=== PATIENT | female | born 1960 | race Caucasian/White ===

== ENCOUNTER 2019-06-16 08:52 | Emergency (ER) | payer BC ==
--- OUTSIDE RECORDS SUMMARY | 2019-06-16 08:58 | XMS REPORT | Summary of Care ---
:1960 Author Organization [facility] Address [address] [facility] [place] [address] Care Team Providers Name Role Phone Park Rosa Primary Care Provider Reason for Visit Reason Comments Sick rash-shingles sx - on and off since Dec Encounter Details Date Type Department Care Team Description 05/15/2019 Office Visit [facility] Park Rosa MD Cellulitis, unspecified cellulitis site (Primary Dx); Medicine [address] [facility] Asthma, unspecified asthma severity, unspecified whether complicated, unspecified whether persistent [address] [place] [address] [place] [address] [phone] Allergies Active Allergy Reactions Severity Noted Date Comments Ambien TRANSPORT MANAGER Reaction 02/21/2016 Did not work Trazodone TRANSPORT MANAGER Reaction 02/21/2016 Dizzy during the day Bupropion Hives 01/25/2010 documented as of this encounter (statuses as of 05/15/2019) Medications Medication Sig Dispensed Refills Start End Date Status Date albuterol HFA Take 2 Puffs 0 Active (PROAIR HFA) 108 (90 by inhalation Base) MCG/ACT EVERY SIX Inhalation Aero Soln HOURS NEEDED. fluticasone-salmeter Take 2 INHL by 1 Inhaler 3 Active ol (ADVAIR HFA) inhalation 7 115-21 MCG/ACT TWICE DAILY. Inhalation Aerosol TURMERIC PO Take by mouth 0 Active TWICE DAILY. Probiotic Product Take 2 Tabs by 0 Active (PROBIOTIC-10 PO) mouth TWICE DAILY. ascorbic acid 500 MG Take 500 mg by 0 Active Oral Tab mouth TWICE DAILY. Cholecalciferol Take 1 Cap by 0 Active (VITAMIN D3 PO) mouth DAILY. Glutamine 500 MG Take 5 Caps by 0 Active Oral Cap mouth DAILY. Ginkgo Biloba Take 2 Caps by 0 Active Extract 60 MG Oral mouth TWICE Cap DAILY. Tow-3 Fatty Acids Take 1 Cap by 0 Active (FISH OIL) 1000 MG mouth DAILY. Oral Cap Polaprezinc Take by 0 Active (PEPZINGI PO) mouth. ESTRADIOL VAGINAL Place 0.5 g 1 Tube 5 Active (ESTRACE VAGINAL) into the 9 0.1 MG/GM Vaginal vagina EVERY CreamIndications: OTHER DAY. S/P LORE-BSO fluoxetine (PROZAC) Take 1 Cap by 90 Cap 3 Active 10 MG Oral Cap mouth DAILY. 9 ALPRAZolam (XANAX) Take 1 Tab by 60 Tab 0 Active 0.25 MG Oral mouth THREE 9 TabIndications: TIMES DAILY Anxiety NEEDED (anxieity). Max Daily Amount: 0.75 mg. cephalexin (KEFLEX) Take 1 Cap by 21 Cap 0 Active 500 MG Oral mouth THREE 0 CapIndications: TIMES DAILY. Cellulitis, unspecified cellulitis site Triamcinolone 1 Appl by 15 g 0 Active Acetonide 0.5 % Apply 0 Apply externally externally CreamIndications: route TWICE Cellulitis, DAILY. Apply unspecified twice/ day cellulitis site ibuprofen (ADVIL) Take 600 mg by 0 05/15/19 Discontinued 200 MG Oral Tab mouth EVERY 20 (Patient stopped SIX HOURS the medication) NEEDED for Pain. dicyclomine (BENTYL) Take 1 Cap by 60 Cap 0 05/15/19 Discontinued 10 MG Oral Cap mouth TWO 9 20 (Patient stopped TIMES DAILY the medication) NEEDED (cramps). 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 Osteopenia 02/18/2015 Overview: 10 % loss of bone - in one yr Malignant neoplasm of left female breast 01/08/2015 Overview: Diagnosis age 42 - Fall 2002 - Chemo and mastectomy - reocurrence 2005 - Radiation / ovarian removal - Instant menopause- Dr Wilson- At [facility] documented as of this encounter (statuses as of 05/15/2019) Immunizations Name Administration Dates Next Due Influenza (IM) Preservative Free 03/18/2018, 01/09/2017, 01/09/2015 Influenza (IM) W/Pres 02/22/2016 documented as of this encounter Social History Tobacco Use Types Packs/Day Years Used Date Former Smoker Smokeless Tobacco: Never Used Alcohol Use Drinks/Week oz/Week Comments Yes 0 Standard drinks or equivalent 0.0 2 to 3 times a week Sex Assigned at Date Recorded Not on file Job Start Date Occupation Industry Not on file Not on file Not on file Travel History Travel Start Travel End No recent travel history available. documented as of this encounter Last Filed Vital Signs Vital Sign Reading Time Taken Comments Blood Pressure 90/62 05/15/2019 4:19 PM EST Pulse 62 05/15/2019 4:19 PM EST Temperature - - Respiratory Rate - - Oxygen Saturation 97% 05/15/2019 4:19 PM EST Inhaled Oxygen Concentration - - Weight 53 kg (116 lb 12.8 oz) 05/15/2019 4:19 PM EST Height 162.6 cm (5' 4") 05/15/2019 4:19 PM EST Body Mass Index 20.05 05/15/2019 4:19 PM EST documented in this encounter Progress Park Quiros MD - 05/15/2019 4:00 PM EST NAME:Rocío Taylor 1960: 1960 ENC Date: 05/15/2019 CC: Chief Complaint Patient presents with Sick rash-shingles sx - on and off since Dec Rocío Taylor is a 59-y.o. female * , Shingles - ? Fall rash - Other rash - Bites on the inner surface of the left arm- Right 5th finger - Pad- Is swollen in the last 1-2 days- Asthma Current Outpatient Medications Medication Sig albuterol HFA (PROAIR HFA) 108 (90 Base) MCG/ACT Inhalation Aero Soln Take 2 Puffs by inhalation EVERY SIX HOURS NEEDED. ALPRAZolam (XANAX) 0.25 MG Oral Tab Take 1 Tab by mouth THREE TIMES DAILY NEEDED (anxieity). Max Daily Amount: 0.75 mg. ascorbic acid 500 MG Oral Tab Take 500 mg by mouth TWICE DAILY. cephalexin (KEFLEX) 500 MG Oral Cap Take 1 Cap by mouth THREE TIMES DAILY. Cholecalciferol (VITAMIN D3 PO) Take 1 Cap by mouth DAILY. ESTRADIOL VAGINAL (ESTRACE VAGINAL) 0.1 MG/GM Vaginal Cream Place 0.5 g into the vagina EVERYOTHER DAY. fluoxetine (PROZAC) 10 MG Oral Cap Take 1 Cap by mouth DAILY. fluticasone-salmeterol (ADVAIR HFA) 115-21 MCG/ACT Inhalation Aerosol Take 2 INHL by inhalation TWICE DAILY. Ginkgo Biloba Extract 60 MG Oral Cap Take 2 Caps by mouth TWICE DAILY. Glutamine 500 MG Oral Cap Take 5 Caps by mouth DAILY. Tow-3 Fatty Acids (FISH OIL) 1000 MG Oral Cap Take 1 Cap by mouth DAILY. Polaprezinc (PEPZINGI PO) Take by mouth. Probiotic Product (PROBIOTIC-10 PO) Take 2 Tabs by mouth TWICE DAILY. Triamcinolone Acetonide 0.5 % Apply externally Cream 1 Appl by Apply externally route TWICE DAILY. Apply twice/ day TURMERIC PO Take by mouth TWICE DAILY. No current facility-administered medications for this visit. 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 No bruising/ bleeding. No neurological complaints . No insomnia.+ . Social History Tobacco Use Smoking status: Former Smoker Smokeless tobacco: Never Used Substance Use Topics Alcohol use: Yes Alcohol/week: 0.0 standard drinks Comment: 2 to 3 times a week Drug use: No OBJECTIVE: BP 90/62 | Pulse 62 | Ht 5' 4" (1.626 m) | Wt 116 lb 12.8 oz (53 kg) | SpO2 97% | BMI 20.05 kg/m . Two large uticarial like papules with excorieated centers - Inside of the left arm Small pink papule on the neck - A/P ICD-9-CM ICD-10-CM 1. Cellulitis, unspecified cellulitis site 682.9 L03.90 cephalexin (KEFLEX) 500 MG Oral Cap Triamcinolone Acetonide 0.5 % Apply externally Cream 2. Asthma, unspecified asthma severity, unspecified whether complicated, unspecified whether persistent 493.90 J45.909 There are no Patient Instructions on file for this visit. AUTHOR: Park Rosa MD 16:46 05/15/2019 documented in this encounter Plan of Treatment Health Maintenance Due Date Last Done Comments MAMMOGRAM (SCREENING) 04/05/2015 04/05/2014, 02/12/2008 DTaP/Tdap/Td Vaccines (1 - 08/09/2019 Postponed from Tdap) 1973 (Other) INFLUENZA VACCINE (#1) 2019 03/18/2018, 01/09/2017, Postponed from 02/22/2016, Additional 12/14/2018 (Other) history exists LIPID DISORDER SCREENING 02/08/2020 02/07/2015, 02/04/2004 ZOSTER IMMUNIZATION SERIES 05/14/2020 Postponed from (1 of 2) 01/19/2012 (Vaccine not available) DEPRESSION SCREENING 05/15/2020 05/15/2019 PNEUMOCOCCAL 0-64 YRS (1 of 05/27/2020 Postponed from 1 - PPSV23) 01/19/1968 (Other) PAP SMEAR 03/18/2021 03/18/2018, 02/03/2015, 02/03/2015, Additional history exists Colonoscopy 02/03/2023 02/03/2018, 12/11/2011 HEPATITIS A IMMUNIZATION Aged Out No longer eligible SERIES based on patient's age to complete this topic HPV IMMUNIZATION SERIES Aged Out No longer eligible based on patient's age to complete this topic MENINGOCOCCAL VACCINE IMM Aged Out No longer eligible based on patient's age to complete this topic documented as of this encounter Goals Goal Patient Goal Associated Recent Patient-Stated? Author Type Problems Progress Depression Depression No Moe screen (PHQ-9) MD Park total score < 5 Note: This is an individualized treatment (depression) goal for Rocío Taylor: Displayed above is your goal for a depression screening (PHQ-9) score that would indicate good control of your depression. Keep a regular sleep schedule Lifestyle Park Murguia MD Note: This is an individualized lifestyle goal for Rocío Taylor: Please maintain a regular sleep schedule. This may help with some symptoms of depression. Take all prescribed medications as directed Self-management No Park Rosa MD Note: This is an individualized self-management goal for Rocío Taylor: Please take all prescribed medications as directed. 1. Do not skip doses. If you cannot afford your medications, talk with your doctor. 2. Use a pill reminder system such as a pill box if needed. Your pharmacist can help you with this. 3. Contact your Pharmacy 5 days before your medication runs out. If you cannot take your medications for any reasons, talk with your doctor. 4. Please bring all of your medication bottles and inhalers (or a list of all your medications/inhalers) with you to every visit. Potential barriers to meeting all of your care plan goals will continue to be addressed on an ongoing basis. documented as of this encounter Results Not on filedocumented in this encounter Visit Diagnoses Diagnosis Asthma, unspecified asthma severity, unspecified whether complicated, unspecified whether persistent Cellulitis, unspecified cellulitis site documented in this encounter Insurance Payer Benefit Plan / Subscriber ID Effective Dates Phone Address Type Group [facility] xxxxxxxxx Effective for all [place] dates documented as of this encounter
--- NOTE | 2019-06-16 09:20 | UC ---
General HPI - HPI Summary HPI Summary: Pleasant 59 yo female c/o persistent L leg and knee pain, x approx 2 weeks. [Has done a lot of driving to [place] during this time. Concerned about possible blood clot. No known recent injury perse. [No p/d/w. Able to ambulate. No personal hx dvt / pe. But + family hx thereof. No fever /chills. [Denies sob /cp /palpitations. - History of Current Complaint Chief Complaint: UCLowerExtremity Stated Complaint: LEG PAIN Hx Obtained From: Patient Hx Last Menstrual Period: none Pain Intensity: 5 - Allergy/Home Medications Allergies/Adverse Reactions: Allergies Allergy/AdvReac Type Severity Reaction Status Date / Time bupropion Allergy Hives Verified 06/16/19 09:07 Home Medications: Home Medications ALPRAZolam TAB* [Xanax TAB*] 0.25 mg PO BEDTIME PRN 02/17/12 [History Confirmed 06/16/19] Ascorbic Acid [Vitamin C] 500 mg PO BID 06/16/19 [History Confirmed 06/16/19] Calcium Carbonate/Vitamin D3 [Calcium 500 + Vit D Caplet] 1 tab PO DAILY [History Confirmed 06/16/19] Glutamine [l-Glutamine] 500 mg PO DAILY 06/16/19 [History Confirmed 06/16/19] Vitamin B Complex CAP* [B Complex CAP*] 1 cap PO DAILY 06/16/19 [History Confirmed 06/16/19] PMH/Surg Hx/FS Hx/Imm Hx Previously Healthy: Yes Other History Of: Negative For: Anticoagulant Therapy - Surgical History Surgical History: Yes Surgery Procedure, Year, and Place: MASTECTOMY 2002, L KNEE 1980,breast RECONSTRUCTION,2003, 2009, OOPHERECTOMY 2006,RETINAL (tetulum rings for radiation therapy) 1987, colonoscopy attempt 2012 - Family History Known Family History: Positive: Hypertension - Social History Alcohol Use: Weekly Substance Use Type: Marijuana Substance Use Comment - Amount & Last Used: occasional Smoking Status (MU): Former Smoker Have You Smoked in the Last Year: No When Did the Patient Quit Smoking/Using Tobacco: 13 yrs ago - Immunization History Most Recent Influenza Vaccination: 2014 Most Recent Tetanus Shot: UTD - 5 years ago Review of Systems All Other Systems Reviewed And Are Negative: Yes Constitutional: Positive: Negative Skin: Positive: Negative Eyes: Positive: Negative ENT: Positive: Negative Respiratory: Positive: Negative Cardiovascular: Positive: Negative Gastrointestinal: Positive: Negative Genitourinary: Positive: Negative Motor: Positive: Other - see hpi Neurovascular: Positive: Other - see hpi Musculoskeletal: Positive: Other: - see hpi Neurological/Mental Status: Positive: Negative Psychological: Positive: Negative Is Patient Immunocompromised?: No Physical Exam Triage Information Reviewed: Yes Appearance: Well-Appearing, Well-Nourished - a little thin Vital Signs: Initial Vital Signs Temp 98.5 F 06/16/19 09:01 Pulse 77 06/16/19 09:01 Resp 16 06/16/19 09:01 BP 94/51 06/16/19 09:01 Pulse Ox 97 06/16/19 09:01 Vital Signs Reviewed: Yes Eye Exam: Normal ENT Exam: Normal Neck exam: Normal - no c/o Respiratory Exam: Normal Respiratory: Positive: Chest non-tender, Lungs clear, Normal breath sounds, No respiratory distress, No accessory muscle use Cardiovascular Exam: Normal Cardiovascular: Positive: RRR, No Murmur, Pulses Normal, Brisk Capillary Refill Abdominal Exam: Normal Abdomen Description: Positive: Nontender Musculoskeletal Exam: Other - R knee + tender R medial inf knee. + crepitus mild bilat. + tender post knee and calf. No focal unilateral edema. + evidence of venous insufficiency and varicosities. Feet warm to touch. Able to ambulate Neurological Exam: Normal - nonfocal Psychological Exam: Normal - nad Skin Exam: Normal - no visible or reported rash Course/Dx - Course Course Of Treatment: Xray R knee - see meditech - Mild osteoarthritis. no acute osseous injury. U/S RLE - Reviewed imaging reports with Ms. Taylor. Suspect additional element venous insuffic. Consider compression. F/u PCP. 12:15 - u;s report avaiable. Reviewed coa / tx plan. [ Questions as posed answered to the best of my ability. - Diagnoses Provider Diagnosis: Knee pain, Calf pain, Varicose vein of leg Discharge ED - Sign-Out/Discharge Documenting (check all that apply): Patient Departure All imaging exams completed and their final reports reviewed: Yes - Discharge Plan Condition: Stable Disposition: HOME Patient Education Materials: Musculoskeletal Pain (ED), Knee Pain (ED), Venous Insufficiency (DC) Forms: *Work Release Referrals: Park Rosa MD [Primary Care Provider] - Additional Instructions: Follow up with Dr. Rosa. Please seek medical attention for worse or new problems. Consider compression sock / stocking, mild-medium compression. - Billing Disposition and Condition Condition: STABLE Disposition: Home
[2019-06-16 12:11] VITALS: BP 105/67
== END 2019-06-16 12:33 | disposition home or self-care (01) ==
LOC: UCEAST 08:52
DX: I83.91 Asymptomatic varicose veins of right lower extremity (principal); M17.11 Unilateral primary osteoarthritis, right knee; M79.661 Pain in right lower leg; Z88.8 Allergy status to other drugs, medicaments and biological substances; Z87.891 Personal history of nicotine dependence
CPT/HCPCS: 99211; G0463

== ENCOUNTER 2022-08-20 05:54 | Inpatient (IN) ==
[2022-08-20] MEDS ORDERED: Lactated Ringers 1000 ml BAG 1,000 ML IV SCH (06:00)
[2022-08-20] MEDS ORDERED: Famotidine IV 10 MG/ML 2 ml VIAL (20 mg) IV ONE (06:00)
[2022-08-20] MEDS ORDERED: Buffered Lidocaine 1% SYRIN 1 ml INTRADERM ONE (06:00)
[2022-08-20] MEDS ORDERED: Famotidine IV 10 MG/ML 2 ml VIAL (20 mg) ONE (06:13)
[2022-08-20] MEDS ORDERED: ceFAZolin 2 GM in NS PREMIX 2 GM/100 ML BAG IVPB ONE (06:25)
[2022-08-20] MEDS ORDERED: Heparin 5000 UNITS/ML 1 mL VIAL ONE (06:25)
[2022-08-20 06:33] LABS: Rapid COVID-19 Molecular Undetected (Undetected)
[2022-08-20] MEDS ORDERED: fentaNYL 100 mcg/2 ml 50 MCG/ML VIAL ONE ×3 (06:41→10:42)
[2022-08-20] MEDS ORDERED: Rocuronium 50 mg VIAL 10 mg/ml 5 ml VIAL (50 mg) ONE (06:41)
[2022-08-20] MEDS ORDERED: Dexamethasone IV 4 MG/ML VIAL 1 ml VIAL ONE (06:41)
[2022-08-20] MEDS ORDERED: Lidocaine 2% PF 5 ML VIAL ONE (06:41)
[2022-08-20] MEDS ORDERED: Midazolam 2 mg/2 ml VIAL 1 mg/ml 2 ml VIAL (2 mg) ONE (06:41)
[2022-08-20] MEDS ORDERED: Ondansetron 4 mg VIAL 2 MG/ML 2 ml VIAL ONE ×2 (06:41→09:01)
[2022-08-20] MEDS ORDERED: Propofol 10 MG/ML 20 ML BTL ONE ×2 (06:41→08:23)
[2022-08-20] MEDS ORDERED: Bupivacaine 0.5% SDV PF 30ML VIAL ONE (07:03)
[2022-08-20] MEDS ORDERED: fentaNYL 100 mcg/2 ml 50 MCG/ML VIAL IV PRN ×2 (07:54→07:58)
[2022-08-20] MEDS ORDERED: HYDROmorphone 1 MG/1 ML SYRINGE IV PRN (07:54)
[2022-08-20] MEDS ORDERED: Naloxone 0.4 mg VIAL 0.4 mg/ml 1 ml VIAL IV PRN ×2 (07:54→07:58)
[2022-08-20] MEDS ORDERED: Acetaminophen IV 1 GM/100ML 1,000 MG/100 ML BAG IV ONE (08:19)
[2022-08-20] MEDS ORDERED: Benzocaine/Menthol LOZ PO PRN (10:20)
[2022-08-20] MEDS ORDERED: Morphine 2 MG/ML SYRINGE IV PRN (10:23)
[2022-08-20] MEDS ORDERED: Benzocaine (plain) Lozenge 15 MG PO PRN (12:08)
[2022-08-20] MEDS ORDERED: Albuterol HFA INHALER 8 gm MDI INH PRN (14:10)
[2022-08-20] MEDS: Heparin 5000 UNITS/ML 1 mL VIAL SUBCUT SCH ×2 (14:22→21:06)
[2022-08-20] MEDS: HYDROcodone/ACETAMIN 5/325 mg TAB PO PRN (14:29)
[2022-08-20] MEDS: ceFAZolin 2 GM in NS PREMIX 2 GM/100 ML BAG IVPB SCH (16:12)
[2022-08-21] MEDS: ceFAZolin 2 GM in NS PREMIX 2 GM/100 ML BAG IVPB SCH ×3 (00:48→16:28)
[2022-08-21] MEDS: HYDROcodone/ACETAMIN 5/325 mg TAB PO PRN ×2 (03:13→10:43)
[2022-08-21] MEDS: Heparin 5000 UNITS/ML 1 mL VIAL SUBCUT SCH ×3 (05:56→21:54)
[2022-08-22] MEDS: ceFAZolin 2 GM in NS PREMIX 2 GM/100 ML BAG IVPB SCH ×2 (00:02→08:37)
[2022-08-22] MEDS: Heparin 5000 UNITS/ML 1 mL VIAL SUBCUT SCH (05:22)
[2022-08-22 10:33] VITALS: BP 99/63
== END 2022-08-22 13:40 | disposition home or self-care (01) | DRG 583 ==
LOC: AA 05:54 → SSU 10:14
PROVIDERS: ADMIT Student in an Organized Health Care Education/Training Program; ATTEND Student in an Organized Health Care Education/Training Program